=== PATIENT | male | born 1990 | race Caucasian/White ===

== ENCOUNTER 2017-06-09 20:34 | Emergency (ER) | payer SELFPAY ==
[~2017-06-09] VITALS: Ht 175.3 cm; Wt 108.0 kg
[2017-06-09 20:38] VITALS: Ht 175.3 cm; Wt 108.0 kg
== END 2017-06-09 21:31 | disposition left against medical advice (07) ==
LOC: FTE 20:34
DX: Z53.21 Procedure and treatment not carried out due to patient leaving prior to being seen by health care provider (principal)